=== PATIENT | male | born 2000 | race African-American/Black ===

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

== ENCOUNTER 2020-03-01 11:25 | Emergency (ER) | payer OTHER ==
--- NOTE | 2020-03-01 12:14 | ED Physician Documentation ---
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 He has been dealing with depression anxiety and insomnia for a long time. He is under treatment for that with the [facility] psychiatrist. He is currently on quarantine status because of recent travel and cannot even leave his room. Last night he went for a drive which the command found out about, he is not supposed to. Briefly while on that drive he thought about driving into the wall. He does not think he ever do anything like that. He is not currently suicidal. Review of Systems Constitutional: reports: Reviewed and negative Ears: reports: Reviewed and negative Throat: reports: Reviewed and negative Cardiac: reports: Reviewed and negative Respiratory: reports: Reviewed and negative PD PAST MEDICAL HISTORY - Past Medical History Cardiovascular: None Respiratory: None Neuro: None Endocrine/Autoimmune: None GI: None : None HEENT: None Psych: Depression, Anxiety Musculoskeletal: None Derm: None - Past Surgical History Past Surgical History: No - Present Medications Home Medications: Ambulatory Orders Medication Instructions Recorded Confirmed Famotidine 20 mg PO BID #30 tablet 05/28/19 Ondansetron Odt [Zofran] 4 mg TL Q6H PRN #10 tablet 05/28/19 - Allergies Allergies/Adverse Reactions: Allergies Allergy/AdvReac Type Severity Reaction Status Date / Time meloxicam Allergy Itching Verified 05/28/19 19:50 naproxen Allergy Itching Verified 05/28/19 19:50 - Social History Does the pt smoke?: Yes Smoking Status: Current every day smoker Does the pt drink ETOH?: No Does the pt have substance abuse?: No - Immunizations Immunizations are current?: Yes - POLST Patient has POLST: No PD ED PE NORMAL - Vitals Vital signs reviewed: Yes - General General: Alert and oriented X 3, No acute distress - HEENT HEENT: PERRL, EOMI - Neck Neck: Supple, no meningeal sign, No bony TTP - Neuro Neuro: Alert and oriented X 3, Normal speech - Psych Psych: Normal mood, Normal affect Results - Vitals Vitals: Vital Signs - 24 hr 03/01/20 11:34 Temperature 36.7 C Heart Rate 65 Respiratory 18 Rate Blood Pressure 120/61 O2 Saturation 98 Oxygen O2 Source Room air PD MEDICAL DECISION MAKING - ED course ED course: 19-year-old gentleman presents with longstanding, depression anxiety and insomnia. He briefly had suicidal ideation last night, it was fleeting and gone now. His affect is appropriate. He contracts with me verbally for safety. Understands he can return anytime if worsening. He will [place] psychiatrist [place]. Departure - Departure Disposition: Home, Self Care Clinical Impression: Depression Qualifiers: Depression Type: major depressive disorder Major depression recurrence: recurrent Active/Remission status: currently active Major depression episode severity: moderate Qualified Code(s): F33.1 - Major depressive disorder, recurrent, moderate Condition: Good Record reviewed to determine appropriate education?: Yes Instructions: ED Depression Comments: [place], return anytime if worsening or you feel like you are in danger.
[2020-03-01 12:26] VITALS: BP 123/78
== END 2020-03-01 12:20 | disposition home or self-care (01) ==
LOC: ED 11:25
DX: F33.1 Major depressive disorder, recurrent, moderate (principal); R45.851 Suicidal ideations; F41.9 Anxiety disorder, unspecified; G47.00 Insomnia, unspecified; F17.200 Nicotine dependence, unspecified, uncomplicated
CPT/HCPCS: 99281; 99284

== ENCOUNTER 2022-03-19 16:49 | Emergency (ER) | payer OTHER ==
[2022-03-19 17:52] LABS: BILIRUBIN,URINE NEGATIVE (NEGATIVE); GLUCOSE, URINE (UA) NEGATIVE (NEGATIVE); KETONES,URINE (UA) NEGATIVE (NEGATIVE); LEUKOCYTE ESTERASE, URINE MODERATE (NEGATIVE); NITRITE,URINE NEGATIVE (NEGATIVE); OCCULT BLOOD,URINE NEGATIVE (NEGATIVE); PH,URINE 6.5 PH (5.0-7.5); PROTEIN,URINE NEGATIVE (NEGATIVE); UROBILINOGEN,URINE 0.2 (NORMAL) E.U./dL (NORMAL)
[2022-03-19 17:53] LABS: CLARITY,URINE HAZY (CLEAR)
[2022-03-19 18:01] LABS: BACTERIA,URINE Rare /HPF (None Seen); RBC,URINE 0-5 /HPF (0-5); SQUAMOUS EPITHELIAL CELL,UR NONE SEEN (<= Few); WBC,URINE >25 /HPF (0-3)
--- NOTE | 2022-03-19 20:06 | Ultrasound Report ---
PROCEDURE: Testicle w/Doppler Limited INDICATIONS: Testicular pain with dysuria TECHNIQUE: Real-time scanning was performed of the scrotum and testicles, with image documentation. Color and p ulse Doppler interrogation was performed of both testicles. COMPARISON: None. FINDINGS: Right: Testicle is normal in size at 3.9 x 1.9 x 2.3 cm, and homogenous in echotexture. Epididymis is normal in overall size and morphology. No hydrocele or varicoceles. Overlying scrotal skin is no rmal in thickness. Left: Testicle is normal in size at 3.9 x 1.5 x 2.4 cm, and homogeneous in echotexture. Epididymis is normal in overall size and morphology. No hydrocele or varicoceles. Overlying scrotal skin is no rmal in thickness. Doppler: Color and pulse Doppler demonstrate normal and symmetric arterial flow in both testicles. Mildly hyperemic, prominent lymph nodes noted in the left inguinal region corresponding to area of pa in. IMPRESSION: Bilateral testicles without acute sonographic abnormality. No sonographic evidence for torsion. Likely reactive left inguinal lymph nodes. Recommend clinical follow-up. Reviewed by: Werner Rajan MD on 03/19/2022 8:04 PM PST Approved by: Werner Rajan MD on 03/19/2022 8:04 PM PST Station ID: [id number]
[2022-03-19] MEDS ORDERED: cefTRIAXone 500 MG VIAL IM STA (20:26)
[2022-03-19] MEDS ORDERED: LIDOCAINE 1% 2 ML VIAL MC ONE (20:26)
[2022-03-19] MEDS ORDERED: AZITHROMYCIN 250 MG TABLET PO STA (20:26)
--- NOTE | 2022-03-19 20:30 | ED Physician Documentation ---
History of Present Illness - Stated complaint Stated Complaint: MALE - Chief complaint Chief Complaint: General - Additonal information Additional information: 21-year-old male presents emergency department for evaluation of 5 days pain w ith urination and penile discharge and left inguinal pain. Pain sometimes radiates into his scrotum. Patient does report a history of STIs in the past but states he always uses a condom now. Last sexual contact 2 weeks ago. He began having pain and discharge 5 days ago. No fevers. He was recently positive for COVID-19. Review of Systems Constitutional: reports: Reviewed and negative Cardiac: reports: Reviewed and negative Respiratory: reports: Reviewed and negative GI: reports: Reviewed and negative : reports: Discharge, Testicular pain Skin: reports: Reviewed and negative PD PAST MEDICAL HISTORY - Past Medical History Cardiovascular: None Respiratory: None Neuro: None Endocrine/Autoimmune: None GI: None : None HEENT: None Psych: Depression, Anxiety Musculoskeletal: None Derm: None - Past Surgical History Past Surgical History: No - Present Medications Home Medications: Ambulatory Orders Medication Instructions Recorded Confirmed Famotidine 20 mg PO BID #30 tablet 05/28/19 Ondansetron Odt [Zofran] 4 mg TL Q6H PRN #10 tablet 05/28/19 Doxycycline Hyclate 100 mg PO BID 10 Days #20 cap 03/19/22 - Allergies Allergies/Adverse Reactions: Allergies Allergy/AdvReac Type Severity Reaction Status Date / Time meloxicam Allergy Itching Verified 05/28/19 19:50 naproxen Allergy Itching Verified 05/28/19 19:50 - Social History Does the pt smoke?: Yes Smoking Status: Current every day smoker Does the pt drink ETOH?: No Does the pt have substance abuse?: No - Immunizations Immunizations are current?: Yes - POLST Patient has POLST: No PD ED PE NORMAL - General General: Alert and oriented X 3, No acute distress, Well developed/nourished - Cardiac Cardiac: RRR, No murmur - Respiratory Respiratory: No respiratory distress, Clear bilaterally - 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 No tenderness elicited with palpation of either scrotum or testicle. There is a palpable lymph node in the left groin.) Results - Vitals Vitals: Vital Signs - 24 hr 03/19/22 17:04 Temperature 37.2 C Heart Rate 110 H Respiratory 20 Rate Blood Pressure 151/64 H O2 Saturation 99 Oxygen O2 Source Room air - Labs Labs: Laboratory Tests 03/19/22 17:25 Urine Color YELLOW Urine Clarity HAZY Urine pH 6.5 Ur Specific New Site 1.010 Urine Protein NEGATIVE Urine Glucose (UA) NEGATIVE Urine Ketones NEGATIVE Urine Occult Blood NEGATIVE Urine Nitrite NEGATIVE Urine Bilirubin NEGATIVE Urine Urobilinogen 0.2 (NORMAL) Ur Leukocyte Esterase MODERATE H Urine RBC 0-5 Urine WBC >25 H Ur Squamous Epith Cells NONE SEEN Urine Bacteria Rare Ur Microscopic Review INDICATED Urine Culture Comments INDICATED - Rads (name of study) test US Radiology: Final report received (Reactive left inguinal lymph node. Bilateral testicles without acute sonographic abnormality) PD Medical Decision Making - ED course Complexity details: reviewed results, considered differential, d/w patient ED course: 21-year-old male presents emergency department for evaluation of 5 days dysuria pain with urination and discharge from his penis. He does have a lymph node in his left groin that is reactive for inflamed. An ultrasound shows no findings suggest epididymitis or orchitis. The urine however is grossly suggestive of infection. Infected shows a nearly sterile pyuria. Given the patient's history of STIs in the past he was administered 1 g of azithromycin as well as 500 mg of ceftriaxone and will be started on a 10-day course of doxycycline. Ultrasound today showed no findings to suggest epididymitis or orchitis. No testicular torsion. I am asking him to follow closely with [facility]. If not improved after the course of medication may benefit from referral to urology. Departure - Departure Disposition: 01 Home, Self Care Clinical Impression: Penile discharge, Lt inguinal pain, Inguinal lymphadenopathy, Concern about sexually transmitted disease in male without diagnosis Condition: Stable Record reviewed to determine appropriate education?: Yes Prescriptions: Doxycycline Hyclate 100 mg PO BID 10 Days #20 cap Comments: You came to the emergency department today because you have been having some pain in your left inguinal region as well as discharge from your penis. I am concerned that you could have a new sexually transmitted disease, specifically gonorrhea. Your urine is being tested for this but today we are treating you empirically. We have given you 1000 mg of azithromycin as well as 500 mg of ceftriaxone. A 10-day course of doxycycline has been sent to [facility] [place]. I would expect with these antibiotics improved pain and discharge over the next few days. If not improving return to the ER. However it is important that you follow closely with [facility] given your history of previous exposure to STD. If you continue to have even subtle symptoms referral to urology is recommended
[2022-03-19 20:48] VITALS: BP 156/63
[2022-03-20 03:03] LABS: CHLAMYDIA TRACHOMATIS DNA NEGATIVE (NEGATIVE)
[2022-03-20 03:04] LABS: NEISSERIA GONORRHOEAE DNA POSITIVE (NEGATIVE)
== END 2022-03-19 20:52 | disposition home or self-care (01) ==
LOC: ED 16:49
DX: R36.9 Urethral discharge, unspecified (principal); R10.32 Left lower quadrant pain; R59.0 Localized enlarged lymph nodes; R30.0 Dysuria
CPT/HCPCS: 76870; 81001; 87086; 87491; 87591; 93976; 96372; 99284; A9270; 81003; 87661